=== PATIENT | male | born 1955 | race Caucasian/White ===

== ENCOUNTER 2024-12-11 19:57 | Emergency (ER) | payer MEDICARE, BC ==
--- NOTE | 2024-12-11 20:48 | ED ---
General Adult HPI - General Chief complaint: Skin/Abscess/Foreign Body Stated complaint: Post op complication, open wound Time Seen by Provider: 12/11/24 20:26 Source: patient Mode of arrival: ambulatory - History of Present Illness Initial comments: Patient is a 69-year-old gentleman past medical history of osteosarcoma with recent mass removed from his left groin at [facility] by Dr. Paris presenting today for bleeding from his postsurgical site. Patient states about 4 days ago the site started to open and they called the patient's surgeon who sent a prescription for antibiotic for the patient. He picked them up yesterday and began them last night. He is unsure of the name of the antibiotics. There was a small amount of bleeding from this region until this afternoon when the wound opened up further and patient's thought the bleeding worsened. She h as been keeping bleeding controlled with gauze pads. There is a small amount of discharge around the surgical site as well. Patient denies increased pain, he denies fevers or chills, difficulty breathing or chest pain, no abdominal pain, difficulty urinating or dysuria. - Related Data Allergies Allergy/AdvReac Type Severity Reaction Status Date / Time No Known Allergies Allergy Verified 12/11/24 20:09 Review of Systems ROS Statement: Those systems with pertinent positive or pertinent negative responses have been documented in the HPI. ROS Other: All systems not noted in ROS Statement are negative. Past Medical History Past Medical History: Cancer, Hyperlipidemia Additional Past Surgical History / Comment(s): Tumor removal from scrotum 12/02/24 Smoking Status: Former smoker Past Alcohol Use History: None Reported Past Drug Use History: None Reported General Exam - General Exam Comments Initial Comments: PE: CONSTITUTIONAL: No apparent distress, well appearing SKIN: Warm, dry, no jaundice, hives or petechiae, scar tissue and scant exudate at post surgical site as noted below EYES: Pupils are equally round, extraocular movements intact without nystagmus, clear conjunctiva, non-icteric sclera HENT: Normocephalic, atraumatic, moist mucus membranes, oropharynx clear without exudates NECK: , Full range of motion, normal appearance PULMONARY: Clear to auscultation without wheezes, rhonchi, or rales, normal excursion, no accessory muscle use and no stridor CARDIOVASCULAR: Regular rate, rhythm, normal S1 and S2. No appreciated murmurs, rubs or gallops. Remedies are well-perfused no lower extremity edema GASTROINTESTINAL: Soft, active bowel sounds throughout, non-tender, non- distended, no palpable masses, no rebound or guarding. 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 Bleeding is controlled and nonpulsatile. No significant surrounding erythema. Scar tissue present. Scant exudate. No strong smell or discharge. MUSCULOSKELETAL: Extremities have no gross deformity, no edema, redness, or swelling. NEUROLOGIC:_a/o x 3, GCS 15, normal mentation and speech. Moves all extremities x 4 without motor or sensory deficit PSYCHIATRIC:_normal mood and affect, thought process is clear and linear Course Vital Signs 12/11/24 20:06 Temperature 98.0 F Pulse Rate 56 L Respiratory 18 Rate Blood Pressure 154/7 O2 Sat by Pulse 100 Oximetry Medical Decision Making - Medical Decision Making Was pt. sent in by a medical professional or institution (, PA, INVESTMENT EXECUTIVE, urgent care, hospital, or alf...) When possible be specific @ -No Did you speak to anyone other than the patient for history (EMS, parent, family, police, friend...)? What history was obtained from this source @ -Spoke with patient's who states patient surgery was on 12/02/2024 Did you review nursing and triage notes (agree or disagree)? Why? @ -I reviewed and agree with nursing and triage notes Were old charts reviewed (outside hosp., previous admission, EMS record, old E KG, old radiological studies, urgent care reports/EKG's, alf records)? Report findings @ -Medical records reviewed Differential Diagnosis (chest pain, altered mental status, abdominal pain women, abdominal pain men, vaginal bleeding, weakness, fever, dyspnea, syncope, headache, dizziness, GI bleed, back pain, seizure, CVA, palpatations, mental health, musculoskeletal)? @ -Differential diagnose transmet overtop considerations include cellulitis, abscess remission, wound dehiscence is an all-inclusive list EKG interpreted by me (3pts min.). @ -As above X-rays interpreted by me (1pt min.). @ -None done CT interpreted by me (1pt min.). @ -None done U/S interpreted by me (1pt. min.). @ -None done What testing was considered but not performed or refused? (CT, X-rays, U/S, labs)? Why? @ -None What meds were considered but not given or refused? Why? @ -None Did you discuss the management of the patient with other professionals (professionals i.e. DrBreanna, PA, INVESTMENT EXECUTIVE, lab, RT, psych nurse, social work therapist, blasting helper, teacher, child support case officer, case assistant)? Give summary @Case discussed with Dr. Benson, surgery [facility], kindly excepted patient for transfer Was smoking cessation discussed for >3mins.? @ -No Was critical care preformed (if so, how long)? @ -No Were there social determinants of health that impacted care today? How? (Homelessness, low income, unemployed, alcoholism, drug addiction, transportation, low edu. Level, literacy, decrease access to med. care, custodial, rehab)? @ -No Was there de-escalation of care discussed even if they declined (Discuss DNR or withdrawal of care, Hospice)? @ -No What co-morbidities impacted this encounter? (DM, HTN, Smoking, COPD, CAD, Can cer, CVA, ARF, Chemo, Hep., AIDS, mental health diagnosis, sleep apnea, morbid obesity)? @Osteosarcoma Was patient admitted / discharged? Hospital course, mention meds given and route, prescriptions, significant lab abnormalities, going to OR and other pertinent info. @ -[Transferred [facility] -this is a 69-year-old gentleman presenting out of concerns for bleeding from postsurgical site in the left groin. Surgery was performed at [facility] by Dr. Paris.Vital signs are stable on arrival. Patient is afebrile. Exam shows 1 cm region of wound dehiscence full-thickness, along the left groin, clear bloody discharge present. No tenderness palpation or excessive swelling. No crepitus palpable. Abdomen soft nontender. Bleeding controlled. Will obtain basic labs and reach out to patient's surgeon for further recommendations. Attempted to reach out to Dr. Paris or whomever is on-call for her however presenting per transfer center they are unable to contact consultants without transferring the patient. As I do not feel we are equipt here to address the complexity of patient's post surgical issue, will transfer patient for closer evaluation. Pt and agreeable with POC. Case was discussed with Dr. Benson, surgery at [facility] who can accept patient for transfer. Patient's groin wound covered with clean dry bandage. Patient and were offered ambulance transfer however they preferred to drive themselves.Labs are all reassuring, no leukocytosis or elevated neutrophil count, hemoglobin shows mild anemia, hemoglobin 11.7. Patient transferred in stable condition Undiagnosed new problem with uncertain prognosis? @ -No Drug Therapy requiring intensive monitoring for toxicity (Heparin, Nitro, Insulin, Cardizem)? @ -No Were any procedures done? @ -No Diagnosis/symptom? @Wound dehiscence Acute, or Chronic, or Acute on Chronic? @Acute Uncomplicated (without systemic symptoms) or Complicated (systemic symptoms)? Uncomplicated Side effects of treatment? @ -No Exacerbation, Progression, or Severe Exacerbation? @ -No Poses a threat to life or bodily function? How? (Chest pain, [place], HI, pneumonia, PE, COPD, DKA, ARF, appy, cholecystitis, CVA, Diverticulitis, Homicidal, Suicidal, threat to staff... and all critical care pts) @ -No - Lab Data Result diagrams: 12/11/24 20:49 12/11/24 20:49 Lab Results 12/11/24 12/11/24 12/11/24 Range/Units 20:49 20:49 20:49 WBC 6.34 (4.50-10.00) 10*3/uL RBC 3.51 L (4.40-5.60) 10*6/uL Hgb 11.7 L (13.0-17.0) g/dL Hct 34.0 L (39.6-50.0) % MCV 96.9 (80.0-97.0) fL MCH 33.3 H (27.0-32.0) pg MCHC 34.4 (32.0-37.0) g/dL Plt Count 185 (140-440) 10*3/uL MPV 9.2 L (9.5-12.2) fL Immature Gran % (Auto) 0.5 % Neutrophils % 60.9 % Lymphocytes % 22.6 % Monocytes % 9.8 % Eosinophils % 5.4 % Basophils % 0.8 % Immature Gran # 0.03 (0.00-0.04) 10*3/uL Neutrophils # 3.87 (1.80-7.70) 10*3/uL Lymphocytes # 1.43 (0.90-5.00) 10*3/uL Monocytes # 0.62 (0.20-1.00) 10*3/uL Eosinophils # 0.34 (0.04-0.35) 10*3/uL Basophils # 0.05 (0.00-0.10) 10*3/uL PT 10.3 (10.0-12.5) sec INR 0.9 (<1.2) APTT 21.8 L (22.0-30.0) sec Sodium 138 (137-145) mmol/L Potassium 4.1 (3.5-5.1) mmol/L Chloride 102 (98-107) mmol/L Carbon Dioxide 27 (22-30) mmol/L Anion Gap 9 mmol/L BUN 15 (9-20) mg/dL Creatinine 0.87 (0.66-1.25) mg/dL Est GFR (CKD-EPI)AfAm >90 (>60 ml/min/1.73 sqM) Est GFR (CKD-EPI)NonAf 87 (>60 ml/min/1.73 sqM) Glucose 123 H (74-99) mg/dL Calcium 10.3 H (8.4-10.2) mg/dL Total Bilirubin 1.4 H (0.2-1.3) mg/dL AST 21 (17-59) U/L ALT 20 (4-49) U/L Alkaline Phosphatase 96 (38-126) U/L Total Protein 7.2 (6.3-8.2) g/dL Albumin 4.2 (3.5-5.0) g/dL Disposition Clinical Impression: Wound dehiscence, Post-operative complication Disposition: OTHER INSTITUTION NOT DEFINED Condition: Stable Referrals: None,Stated [Primary Care Provider] - 1-2 days - Out of Hospital Transfer - Req. Specs Out of Hospital Transfer - Requested Specifics: Other Emergency Center ([facility])
[2024-12-11 20:55] LABS: Basophils # (A) 0.05 10*3/uL (0.00-0.10); Basophils % (A) 0.8 %; Eosinophils # (A) 0.34 10*3/uL (0.04-0.35); Eosinophils % (A) 5.4 %; HGB 11.7 g/dL (13.0-17.0); Lymphocytes # (A) 1.43 10*3/uL (0.90-5.00); Lymphocytes % (A) 22.6 %; MCH 33.3 pg (27.0-32.0); MCHC 34.4 g/dL (32.0-37.0); MCV 96.9 fL (80.0-97.0); Mean Platelet Volume 9.2 fL (9.5-12.2); Monocytes # (A) 0.62 10*3/uL (0.20-1.00); Monocytes % (A) 9.8 %; Neutrophils # (A) 3.87 10*3/uL (1.80-7.70); Neutrophils % (A) 60.9 %; Platelet Count 185 10*3/uL (140-440); RBC 3.51 10*6/uL (4.40-5.60); RDW 14.1 % (11.5-14.5); WBC 6.34 10*3/uL (4.50-10.00)
[2024-12-11 21:08] LABS: ALT 20 U/L (4-49); AST 21 U/L (17-59); African American GFR (CKD) >90 (>60 ml/min/1.73 sqM); Albumin 4.2 g/dL (3.5-5.0); Alkaline Phosphatase 96 U/L (38-126); Anion Gap 9 mmol/L; Blood Urea Nitrogen 15 mg/dL (9-20); Calcium 10.3 mg/dL (8.4-10.2); Carbon Dioxide 27 mmol/L (22-30); Chloride 102 mmol/L (98-107); Glucose 123 mg/dL (74-99); Non-African American GFR(CKD) 87 (>60 ml/min/1.73 sqM); Potassium 4.1 mmol/L (3.5-5.1); Sodium 138 mmol/L (137-145); Total Bilirubin 1.4 mg/dL (0.2-1.3); Total Protein 7.2 g/dL (6.3-8.2)
[2024-12-11 21:13] LABS: INR 0.9 (<1.2); Prothrombin Time 10.3 sec (10.0-12.5)
[2024-12-11 21:17] LABS: Partial Thromboplastin Time 21.8 sec (22.0-30.0)
[2024-12-11 22:06] VITALS: BP 169/84; PULSE 61; RESP 16; TEMP 98.1
== END 2024-12-11 22:05 | disposition other institution (70) ==
LOC: EC 19:57
DX: T81.31XA Disruption of external operation (surgical) wound, not elsewhere classified, initial encounter (principal); Z85.830 Personal history of malignant neoplasm of bone; Z87.891 Personal history of nicotine dependence
CPT/HCPCS: 36415; 80053; 85025; 85610; 85730; 99284